=== PATIENT | male | born 1950 | race Caucasian/White ===

== ENCOUNTER → 2020-08-10 | Outpatient (CLI) | payer MEDICARE, BC | LOC: KOH-I 10:09 | DX: M54.5 Low back pain (principal) | CPT/HCPCS: 74018 ==

== ENCOUNTER → 2020-10-30 | Outpatient (CLI) | payer MEDICARE, BC | LOC: KOH-I 15:41 | DX: R06.02 Shortness of breath (principal) | CPT/HCPCS: 71046 ==